=== PATIENT | female | born 1975 ===

== ENCOUNTER 2018-02-10 08:25 | Day surgery (SDC) | payer MEDICAID ==
[2017-10-17 09:15] VITALS: BMI 25.9
[2018-02-10 09:03] VITALS: RESP 18
[2018-02-10] MEDS ORDERED: LIDOCAINE 2% 10ML 20 MG/ML VIAL IJ ONE (10:58)
[2018-02-10] MEDS ORDERED: Propofol 10 mg/ml Inj (20 ML) ONE (11:39)
[2018-02-10] MEDS ORDERED: Lidocaine 4% (Laryng-O-Jet) Kit MM ONE (11:41)
[2018-02-10] MEDS ORDERED: Rocuronium 10 mg/ml (5 ml) ONE (11:41)
[2018-02-10] MEDS ORDERED: Succinylcholine 200 mg/10 ml Inj IV ONE (11:41)
[2018-02-10] MEDS ORDERED: Neostigmine 1:1000 (1 mg/ml) Inj ONE (11:44)
[2018-02-10] MEDS ORDERED: Midazolam 2 MG/2 ML VIAL ONE (12:05)
--- NOTE | 2018-02-10 12:06 | CP.SDSHP ---
Same Day Surgery H & P - History Proposed Procedure: R excision of R breast mass Pre-Op Diagnosis: R breast mass - Previous Medical/Surgical History Pain: 2.Mild Pain Previous Surgical History: breast bx - Allergies Allergies: Allergies No Known Allergies Allergy (Verified 02/10/18 08:38) - Physical Exam General Appearance: NAD Vital Signs: Vital Signs 02/10/18 02/10/18 09:00 09:07 Temperature 97.9 F Pulse Rate 63 63 Respiratory 18 Rate Blood Pressure 127/82 O2 Sat by Pulse 98 Oximetry Mental Status: Alert & Oriented x3 Neuro: WNL Heart: WNL Lungs: WNL GI: WNL - {Optional Preform as Required} Breast: Other (b/l breast scar . R breast 9 o clock position 5cm from nipple 1cm palpable mass) Abdomen: WNL Integument: WNL Short Stay Discharge - Short Stay Discharge Admitting Diagnosis/Reason for Visit: N63 Disposition: HOME/ ROUTINE Referrals: Reid Perez DO [Primary Care Provider] - My Puga MD [Staff Provider] - Follow-up: follow up at Dr. uPga's office in 1- 2weeks
[2018-02-10] MEDS ORDERED: Lactated Ringer's 1,000 ML IV ONE ×2 (12:10→12:50)
--- NOTE | 2018-02-10 12:53 | PCM.SURG1 ---
Surgeon's Initial Post Op Note - Surgeon's Notes Surgeon: Dr. Puga Detail Technician: Naren Evans PGY2, PGY4 Type of Anesthesia: General Endo Pre-Operative Diagnosis: R breast mass Operative Findings: R cystic breast mass [id number] Post-Operative Diagnosis: Fibroadenoma of R breast Operation Performed: R breast mass excision Specimen/Specimens Removed: R breast mass [id number] Estimated Blood Loss: EBL {In ML}: 5 Blood Products Given: N/A Drains Used: No Drains Post-Op Condition: Good Date of Surgery/Procedure: 02/10/18 Time of Surgery/Procedure: 12:52
[2018-02-10] MEDS ORDERED: Oxycodone/Acetaminophen 5/325 mg Tab PO PRN (12:56)
[2018-02-10] MEDS ORDERED: HYDROmorphone 0.5 mg/0.5 ml ISec IVP PRN (13:03)
[2018-02-10] MEDS ORDERED: Lactated Ringer's 1,000 ML IV SCH (13:15)
[2018-02-10 15:32] VITALS: BP 110/73; PULSE 51; TEMP 98.1; O2SAT 100
--- NOTE | 2018-02-10 18:07 | MAM ---
HISTORY: Ultrasound-guided needle localization right breast. TECHNIQUE/FINDINGS: Following the localization procedure at the right breast under ultrasound control, full field mediolateral craniocaudal mammograms were performed confirming wire localizing lesion and lateral right breast successfully. This stiffener is identified in the lesion which contains posterior margins of the stiffener with the hook seen anterior to lesion via lateral approach. A prior post ultrasound-guided needle biopsy clip is identified from a prior ultrasound-guided core biopsy performed 08/02/2016 yielding a diagnosis of fibroadenoma at that time. Clip is seen posterior superior to the current nodule in question. IMPRESSION: Confirmation of wire localization of lateral right breast lesion.
--- NOTE | 2018-02-10 18:32 | US ---
HISTORY: Patient is a the 42-year-old female presenting for ultrasound-guided needle localization of suspicious lateral right breast sonographic finding at the 9 o'clock radius. Outside diagnostic mammogram and ultrasound from 07/04/2017 from an outside imaging center have been reviewed. TECHNIQUE/FINDINGS: Following full discussion of risks and benefits of this with the patient through a forest fire fighter, written informed consent was freely obtained. Timeout was called for ultrasound guided wire needle localization procedure for lesion in the 9 o'clock position of the right breast approximately 6 cm from the nipple. The mass was identified with ultrasound at the 9 o'clock radius 6 cm from the nipple proximally with the skin subsequently marked for the procedure. Maximum sterile barrier protection was provided the skin overlying the lesion and surrounding it and 4 cc of 1 percent lidocaine was utilized for local and deep tissue anesthesia. A question needle wire assembly was subsequently advanced under ultrasound control with pineal deployed facilitating the stiffener inside the lesion in question. Needle was removed and confirmation of placement of the wire through the lesion in question was performed in orthogonal views both by ultrasound and by post procedure mammography. The wire was seen to be in good apparent position which was subsequently properly secured in position. Patient tolerated the procedure well with no complications. The operating room informed our department after the procedure that no specimen would be submitted for post lumpectomy mammography. OTHER FINDINGS: None. IMPRESSION: Status post successful ultrasound-guided wire localization of the lateral right breast mass. Following pathology result, addend this report will be provided.
== END 2018-02-10 15:50 | disposition home or self-care (01) ==
LOC: H.OPSURG 08:25
PROVIDERS: ATTEND Specialist
DX: D24.1 Benign neoplasm of right breast (principal); N63.10 Unspecified lump in the right breast, unspecified quadrant
CPT/HCPCS: 19281; 19285; 88307; J0131; J0330; J0690; J1885; J2001; J2250; J2405; J2704; J2710; J3010; J7120